=== PATIENT | male | born 1950 | race Caucasian/White ===

== ENCOUNTER → 2022-01-18 07:29 | Outpatient (CLI) | payer MEDICARE, SELFPAY ==
--- NOTE | ~2022-01-18 | US_ITS ---
EXAMINATION: US right upper quadrant DATE: 01/18/2022 08:13 INDICATION: Right upper quadrant abdominal pain TECHNIQUE: Multiple grayscale and Doppler ultrasound images of the abdomen were obtained. COMPARISON: None FINDINGS: Visualized proximal inferior vena cava and aorta are normal. The pancreas is not clearly visualized, obscured by shadowing gas in the stomach and bowels. Liver has normal contour, with a smooth surface. There is increased parenchymal echogenicity and coarsened echotexture consistent with diffuse hepati c steatosis. No liver lesion identified. No intrahepatic biliary duct dilation suspected. Portal mani ous flow was seen in the hepatopetal, normal direction and has normal Doppler waveform. There is shad owing the region of the gallbladder fossa. On some of the images as appears to represent dirty shadow ing is seen with gas. Where not obscured the gallbladder appears normal with no dilation or wall thic kening. Sonographic Zabala sign was reported as negative by the television director.The common bile duct albino ures 5 mm in diameter which is normal. The right kidney measures 10.8 cm in length with normal contou r and echogenicity and no hydronephrosis. IMPRESSION: 1. Shadowing at the gallbladder fossa. From the provided images it is unclear whether this represents gallstones, mural calcification or potentially gas within an adjacent loop of bowel. There is howeve r no bowel wall thickening or sonographic Zabala's sign to suggest acute cholecystitis. If this would affect clinical management would consider CT for further evaluation. 2. Diffuse hepatic steatosis. Reviewed, dictated and finalized at location A. IMPRESSION: 1. Shadowing at the gallbladder fossa. From the provided images it is unclear w hether this represents gallstones, mural calcification or potentially gas withi n an adjacent loop of bowel. There is however no bowel wall thickening or sonog raphic Zabala's sign to suggest acute cholecystitis. If this would affect clini edson management would consider CT for further evaluation. 2. Diffuse hepatic steatosis.
== END ==
PROVIDERS: PCP Internal Medicine; Visit Provider Internal Medicine
DX: R10.11 Right upper quadrant pain (principal); K76.0 Fatty (change of) liver, not elsewhere classified
CPT/HCPCS: 76705

== ENCOUNTER → 2022-07-24 11:22 | Outpatient (CLI) | payer MEDICARE, SELFPAY ==
--- NOTE | ~2022-07-24 | MR_ITS ---
EXAMINATION: MR knee RT wo con DATE: 07/24/2022 12:00 INDICATION: Twisting injury in April. Worsening generalized knee pain, weakness, sensation of giving out. TECHNIQUE: Magnetic resonance imaging (MRI) of the right knee was performed without intravenous contr ast. Sequences included axial PD-weighted FS FSE, coronal PD-weighted FSE and PD-weighted FS FSE, sag ittal PD-weighted FSE, and sagittal T2-weighted FS FSE. COMPARISON: None. FINDINGS: Medial compartment: Oblique undersurface tear of the posterior horn, medial meniscus. Small apical tear at the medial men iscal body. Moderate diffuse cartilage thinning with partial thickness fraying over the weightbearing surface of the medial femoral condyle. Mild osteophytosis. Lateral compartment: Apical tear of the body of the lateral meniscus. Mild diffuse cartilage thinning. 4 mm partial-thickn ess cartilage defect overlying the area of depressed cortex and subcortical cyst formation. Moderate osteophytosis. Patellofemoral compartment: Full-thickness cartilage loss over the medial facet and a portion of the median ridge with subcortica l cyst formation. Retinacula intact. Ligaments and tendons: ACL, PCL, MCL, and LCL are intact. Remaining flexor and extensor tendons are intact. Fluid: Small volume joint fluid. Osseous/other: No suspicious focal or diffuse marrow signal. IMPRESSION: 1. Oblique undersurface posterior horn tear and apical body tear of the medial meniscus. 2. Apical tear of the body of the lateral meniscus. 3. Presumably old, partially healed osteochondral lesion at the lateral femoral condyle. 4. Moderate tricompartmental osteoarthritic changes. Reviewed, dictated and finalized at location K. [employer]SEM[employer]
== END ==
PROVIDERS: PCP Internal Medicine
DX: M25.561 Pain in right knee (principal); S83.241A Other tear of medial meniscus, current injury, right knee, initial encounter; S83.281A Other tear of lateral meniscus, current injury, right knee, initial encounter; M89.9 Disorder of bone, unspecified; M17.11 Unilateral primary osteoarthritis, right knee
CPT/HCPCS: 73721

== ENCOUNTER 2023-02-05 01:41 | Day surgery (SDC) | payer MEDICARE, SELFPAY ==
[2023-02-02 12:55] VITALS: BMI 36.3
--- NOTE | 2023-02-05 07:00 | ECG_ITS ---
Measurements Intervals [place] Rate: 50 P: 15 NJ: 226 QRS: 25 QRSD: 94 T: 55 QT: 398 QTc: 364 Interpretive Statements SINUS BRADYCARDIA WITH FIRST DEGREE AV BLOCK ABNORMAL ECG NO PREVIOUS ECG AVAILABLE FOR COMPARISON Electronically Signed On 02-05-2023 10:25:07 CDT by Zohaib Amos M.D.
--- NOTE | 2023-02-05 08:50 | SUR.PHASEII ---
Pt in SB with 1 degree. GERALD/CV cancelled. Discharge instructions on follow up stress test and appointment went over with pt and spouse.
== END 2023-02-05 08:50 | disposition home or self-care (01) ==
PROVIDERS: PCP Internal Medicine; Visit Provider Internal Medicine Cardiovascular Disease
PROC: (CPT 93312; principal; 2023-02-05 08:30)
PROC: 5A2204Z Restoration of Cardiac Rhythm, Single (ICD-10-PCS; 2023-02-05 08:30)
DX: I48.91 Unspecified atrial fibrillation (principal); Z53.8 Procedure and treatment not carried out for other reasons
CPT/HCPCS: 99211; G0463; J7030

== ENCOUNTER 2025-07-03 00:10 | Day surgery (SDC) | payer MEDICARE, SELFPAY ==
--- OUTSIDE RECORDS SUMMARY | 2014-12-18 08:51 | XMS_ITS | Continuity of Care Document ---
Author Organization [facility] Address [address] [place] [address] [address] [place] [address] Phone Care Team Providers Care Director Process Improvement Name Role Phone Melvi PT, MS, Anup Unavailable Unavailable Procedures Procedure Date THERAPEUTIC EXERCISES NEUROMUSCULAR RE-ED MANUAL THERAPY THERAPEUTIC EXERCISES NEUROMUSCULAR RE-ED MANUAL THERAPY PT RE-EVALUATION THERAPEUTIC EXERCISES NEUROMUSCULAR RE-ED MANUAL THERAPY THERAPEUTIC EXERCISES NEUROMUSCULAR RE-ED MANUAL THERAPY THERAPEUTIC EXERCISES NEUROMUSCULAR RE-ED MANUAL THERAPY THERAPEUTIC EXERCISES NEUROMUSCULAR RE-ED MANUAL THERAPY HOT/COLD PACK ELECTRIC STIMULATION UNA THERAPEUTIC EXERCISES NEUROMUSCULAR RE-ED MANUAL THERAPY HOT/COLD PACK ELECTRIC STIMULATION UNATT THERAPEUTIC EXERCISES NEUROMUSCULAR RE-ED MANUAL THERAPY HOT/COLD PACK ELECTRIC STIMULATION UNATT THERAPEUTIC EXERCISES NEUROMUSCULAR RE-ED MANUAL THERAPY HOT/COLD PACK ELECTRIC STIMULATION UNATT THERAPEUTIC EXERCISES NEUROMUSCULAR RE-ED MANUAL THERAPY HOT/COLD PACK ELECTRIC STIMULATION UNATT PT RE-EVALUATION THERAPEUTIC EXERCISES MANUAL THERAPY HOT/COLD PACK ELECTRIC STIMULATION UNATT THERAPEUTIC EXERCISES MANUAL THERAPY HOT/COLD PACK ELECTRIC STIMULATION UNATT THERAPEUTIC EXERCISES MANUAL THERAPY HOT/COLD PACK ELECTRIC STIMULATION UNATT THERAPEUTIC EXERCISES MANUAL THERAPY HOT/COLD PACK ELECTRIC STIMULATION UNA PT RE-EVALUATION THERAPEUTIC EXERCISES MANUAL THERAPY HOT/COLD PACK ELECTRIC STIMULATION UNATT THERAPEUTIC EXERCISES MANUAL THERAPY HOT/COLD PACK ELECTRIC STIMULATION UNATT PT EVALUATION THERAPEUTIC EXERCISES MANUAL THERAPY HOT/COLD PACK ELECTRIC STIMULATION UNATT Advance Directives Directive Yes / No Effective Date File Name No Information Encounters Encounter Description Practice Location Reason(s) For Visit Diagnoses Date Provider Providers Copied on Encounter [facility], [place], [place], [id number], [phone] [place] No Information 7-201 5 Melvi Anup. [address] [address], . tel: [phone] [facility] [address] [facility] [address], [place], [place], [address], [phone] [place] No Information 0-201 5 Bryson Blakely. [address] [place] [address], [place] [address], . tel: [phone] Referring Provider: Ld Sorto, [address], [place], [address]. tel:[phone] [address], [place], [place], [address], [place] tel:[phone] [place] No Information Apr-0 8-201 5 Mayra Jayson. [address] [place] [address], [address], [place], [address], [place]. tel: [phone] Referring Provider: Ld Sorto, [address], [place], [address]. tel:[phone] [address], [place], [place], [address], [place] tel:[phone] [place] No Information Apr-0 1-201 5 Melvi Anup. [address] [place] [address], [address], [place], [address], [place]. tel: [phone] Referring Provider: Ld Sorto, [address], [place], [address]. tel:[phone] [address], [place], [address], [place] tel:[phone] [place] No Information Mar-3 0-201 5 Melvi Anup. [address] [place] [address], [address], [place], [address], [place]. tel: [phone] Referring Provider: Ld Sorto, [address], [place], [address]. tel:[phone] [address], [place], [place], [address], [place] tel:[phone] [place] No Information Mar-2 5-201 5 Melvi Anup. [address] [place] [address], [address], [place], [address], [place]. tel: [phone] Referring Provider: Ld Sorto [address], [place], [address]. tel:[phone] [facility] [address], [place], [place], [address], [place] tel:[phone] [place] No Information Mar-2 3-201 5 Mayra Tyler. [address] [place] [address], [address], [place], [place], [facility], [place]. tel: [phone] Referring Provider: Ld Sorto, [address], [place], [address]. tel:[phone] [facility] [address], [place], [place], [id number], [place] tel:[phone] [place] No Information Mar-1 8-201 5 Melvi Anup. [address] [place] [address], [address], [place], [address], [place]. tel: [phone] Referring Provider: Ld Sorto, [address], [place], [address]. tel:[phone] [facility] [address] [facility], [place], [place], [address], [place] tel:[phone] [place] No Information Mar-1 6-201 5 Melvi Anup. [address] [place] [address], [address], [place], [address], [place]. tel: [phone] Referring Provider: Jennifer [address], [place], [address]. tel:[phone] [facility] [address], [place], [place], [address], [place] tel:[phone] [place] No Information Mar-1 3-201 5 Melvi Anup. [address], [address], [place], [address], [place]. tel: [phone] Referring Provider: Ld Sorto, [address], [place], [address]. tel:[phone] [facility] [facility], [place], [place], [id number], [place] tel:[phone] [place] No Information 5 Melvi Anup. [address], [address], [place], [address], [place]. tel: [phone] Referring Provider: Nehal [address], [place], [address]. tel:[phone] [place] [address] [facility], [place], [place], [address], [place] tel:[phone] [place] No Information 5 Melvi Anup. [address], [address], [place], [address], [place]. tel: [phone] Referring Provider: Nehal Post [address], [place], [address]. tel:[phone] [address], [place], [place], [address], [place] tel:[phone] [place] No Information 5 Melvi Anup. [address], [address], [place], [address], [place]. tel: [phone] Referring Provider: Nehal [address], [place], [address]. tel:[phone] [facility] [address] [place], [place] [address], [place], [place], [address], [place] tel:[phone] [place] No Information 5 Melvi Anup. [address], [address], [place], [address], [place]. tel: [phone] Referring Provider: Nehal Post [address], [place], [address]. tel:[phone] [facility], [address], [place], [place], [address], [place] tel:[phone] [place] No Information 5 Melvi Anup. [address], [address], [place], [address], [place]. tel:[phone] Referring Provider: Jennifer [address], [place], [address]. tel:[phone], [id number], tel:[phone] [place] No Information 5 Melvi Hebert. [address], [address], [place], [address], [place]. tel:[phone] Referring Provider: eJnnifer [address], [place], [address]. tel:[phone], [id number], [phone] [place] No Information 5 Melvi [address]. [address] [place] [address], [address], [place], [address], [place]. tel:[phone] Referring Provider: Jennifer [address], [place], [address]. tel:[phone], [id number], [place] tel:[phone] [place] Complete rupture of rotator cuffPain in joint involving shoulder region 5 Melvi Hebert. [address], [address], [place], [address], [place]. tel:[phone] Referring Provider: Nehal [address], [place], [address]. tel:[phone] Family History Family Member Type Diagnosis Age At Onset No Information Payers Payer name Insurance type Covered libertarian ID Authoriza tion(s) [email or web address] [id number] Social History Type Description Quantity Date Captured Comments Sex Male Smoking Status No Information Chief Complaint And Reason For Visit No Information Reason For Referral Reason For Referral No Information History Of Present Illness Encounter Date Complaint History Of Prese nt Illness No Information Functional Status Date Functional Assessmen t No Information Instructions Date Instruction Additional Infor mation No Information Assessments Type Assessment Date No Information Patient Care Teams Name Effective Dates (start - stop) Status Members No Information
[2025-07-02 11:42] VITALS: BMI 35.3
[2025-07-03] VITALS (9 sets, daily range): BP systolic 96–131; BP diastolic 66–114; PULSE 55–111; RESP 12–20; TEMP 36.1; O2SAT 93–100
--- NOTE | 2025-07-03 | ECHO_ITS ---
Patient Info Name: Kedar Peng Age: 75 years : 1950 Gender: Male Ht: 72 in Wt: 260 lbs BSA: 2.49 m2 HR: 111 bpm BP: 111 / 78 mmHg Heart Rhythm: Atrial Fibrillation Technical Quality: Good Exam Date: 07/03/2025 10:06 AM Patient Status: unknown Admit Date: 07/03/2025 Exam Type: CA echo transesophageal Complete two-dimensional, color flow and Doppler transesophageal study is performed. Email Deployment Specialist: Gideon Talbot III Attending Provider: Julian Sanabria MD Summary 1. Limited transesophageal echocardiogram done prior to cardioversion. 2. Left atrium and left atrial appendage are dilated there is no evidence of thrombus. Left Ventricle Left ventricular chamber dimension is normal. Right Ventricle Right ventricular chamber dimension is normal. Left Atria Left atrial chamber dimension is severely enlarged. There is no thrombus visualized in the left atrium. Right Atria Right atrial chamber dimension is normal. Atrial Appendage There is no thrombus visualized in the left atrial appendage. Aortic Valve The aortic valve is normal. Pulmonic Valve The pulmonic valve is not well visualized. Mitral Valve The mitral valve has normal leaflets. Tricuspid Valve The tricuspid valve leaflets are normal. Pericardium/Pleural The pericardium appears normal. Aorta The aortic root size at the sinus of Valsalva is not well visualized. Report Signatures
--- OUTSIDE RECORDS SUMMARY | 2025-07-03 00:13 | XMS_ITS | Clinical Summary ---
Author Organization [facility] Address [address] [place] [address] Care Team Providers Care Academic Coach Name Role Phone Ramirez Whitfield MD Primary Care Provider [phone] Source Comments [facility] [employer],non-owned Affiliates and Associated Physician Practices is amultiple site organization consisting of ambulatory clinics and hospital sitesin [place], [place], [place] and [place]. This disclosure is being madepursuant to the Care Everywhere program and may not contain all information available regarding this patient. Last updated 18.[facility] [employer] Allergies No known active allergies Medications * Be aware that medications may not be up to date on this document. Alwaysverify current medications with the patient. aspirin (ASPIRIN) 81 MG tablet Take 1 Tab by mouth once daily 01/03/20 17 Active buPROPion XL 24hr (WELLBUTRIN-XL) 150 MG tablet Take 1 tablet by mouth once daily 09/17/19 19 Active losartan - hydroCHLOROthiazide (HYZAAR) 50-12.5 MG tablet Take 1 tablet by mouth once daily 90 tablet 1 04/25/20 19 Active atorvastatin (LIPITOR) 20 MG tablet TAKE 1 TABLET BY MOUTH ONCE DAILY AT BEDTIME 90 tablet 2 09/10/19 20 Active losartan (COZAAR) 50 MG tablet Take 1 tablet by mouth once daily Pt will need to make an appointment for further refills. 90 tablet 01/19/20 20 Active hydroCHLOROthiazide (MICROZIDE) 12.5 MG capsule Take 1 capsule by mouth once daily Pt will need to make an appointment for further refills. 90 capsule 01/19/20 20 Active Active Problems Problem Noted Date Diagnosed Date Elevated cholesterol 01/02/2017 Fam hx-ischem heart disease 01/02/2017 HTN (hypertension), benign Resolved Problems Problem Noted Date Diagnosed Date Resolved Date Chest pain 01/02/2017 10/09/2018 Family History Medical History Relation Name Comments Heart Disease Brother chf Heart Disease Father valve replacem ent Heart Disease Mother chf Heart Disease Sister chf Relation Name Status Comments Brother (Age 61) Father (Age 72) heart dise ase Mother (Age 80) chf Sister (Age 60) chf Social History Tobacco Use Types Packs/Day Years Used Date Smoking Tobacco: Never Smokeless Tobacco: Never Alcohol Use Standard Drinks/Week Comments No 0 (1 standard drink = 0.6 oz pur e alcohol) Sex and Gender Information Value Date Recorded Sex Assigned at Not on file Legal Sex Male 5:39 AM TALENT AGENT Gender Identity Not on file Sexual Orientation Not on file Last Filed Vital Signs Vital Sign Reading Time Taken Comments Blood Pressure 154/72 10/09/2018 1:05 PM TALENT AGENT Pulse 64 10/09/2018 1:05 PM TALENT AGENT Temperature - - Respiratory Rate - - Oxygen Saturation 94% 12/12/2017 1:27 PM CDT Inhaled Oxygen Concentration - - Weight 118.4 kg (261 lb) 10/09/2018 1:05 PM TALENT AGENT Height 188 cm (6' 2) 10/09/2018 1:05 PM TALENT AGENT Body Mass Index 33.51 10/09/2018 1:05 PM TALENT AGENT Plan of Treatment Health Maintenance Due Date Last Done Comments COLOGUARD (AGES 45-75) - COL ON CA SCREENING 1950 COLON MONITORING 1950 COLONOSCOPY - COLON CA SCREENING 1950 CT COLONOGRAPHY - COLON CA SCREENING 1950 Colorectal Cancer Screening 1950 FIT - COLON CA SCREENING 1950 FLEX SIG - COLON CA SCREENING 1950 HEPATITIS C SCREENING 04/23/1970 DTAP/TDAP/TD VACCINES (1 - Tdap) 1971 PNEUMOCOCCAL VACCINE 50+ (1 of 1 - PCV) 2002 ZOSTER VACCINE (1 of 2) 2002 SCREENING FOR DIABETES 06/06/2017 DEPRESSION SCREENING 09/03/2024 COVID-19 VACCINE (1 - 2023-2 5 season) 2025 INFLUENZA VACCINE (#1) 2025 Respiratory Syncytial Virus (RSV) Vaccine Pt: or over 60 yrs (1 - 1-dose 75+ series) 2027 HEPATITIS B VACCINE Aged Out No longe r eligible based on patient's age to complete this topic HIB VACCINE Aged Out No longer eligi ble based on patient's age to complete this topic HPV VACCINE Aged Out No longer eligi ble based on patient's age to complete this topic MENINGOCOCCAL (Group B) VACC INE SHARED DECISION-MAKING Aged Out No longer eligibl e based on patient's age to complete this topic MENINGOCOCCAL GROUPS A/C/Y/W VACCINE Aged Out No longer eligible b ased on patient's age to complete this topic Insurance MEDICARE C[employer]ER [employer] MEDICARE MEDICARE Care Teams Academic Coach Relationship Specialty Start Date End Date Ramirez Whitfield MD PCP - General Internal Medicine 01/01/17
--- OUTSIDE RECORDS SUMMARY | 2025-07-03 00:13 | XMS_ITS | Clinical Summary ---
Author Organization [facility] Address [address] [place] [address] Phone Care Team Providers Care Document Control Associate Name Role Phone Ramirez Whitfield MD Primary Care Provider [phone] Allergies No known active allergies Medications ergocalciferol (VITAMIN D) 76495 UNIT Capsule Take 50,000 Units by mouth once a week. Active DULoxetine (CYMBALTA) [address] Particles Take 60 mg by mouth daily. Active atorvastatin (LIPITOR) 20 MG Tablet Take 20 mg by mouth daily. Active lisinopril (PRINIVIL, ZESTRIL) 10 MG Tablet Take 10 mg by mouth daily. Active aspirin EC (ECOTRIN) 325 MG Tablet Delayed Response Take 325 mg by mouth daily. Active hydroCHLOROthiaz dominic (MICROZIDE) 12.5 MG Capsule Take 12.5 mg by mouth daily. 07/20/2017 Active Active Problems Problem Noted Date Diagnosed Date Calculus of gallbladder with acute cholecystitis without obstruction 07/24/2017 Hypertension 07/24/2017 Hyperglycemia 07/24/2017 Anxiety and depression 07/24/2017 STEFAN on CPAP 07/24/2017 Resolved Problems Problem Noted Date Diagnosed Date Resolved Date SIRS (systemic inflammatory response syndrome) 07/24/2017 08/02/2017 Immunizations Immunization Administration Dates Next Due Covid-19, Mrna, Lnp-s, Pf, 30 Mcg/0.3 Ml Dose (Laura fizer) 04/05/2021,03/11/2021 Family History Medical History Relation Name Comments Diabetes Brother No Known Problems Father No Known Problems Maternal Grandfather No Known Problems Maternal Grandmother Diabetes Mother Ovarian Cancer Mother No Known Problems Other No Known Problems Paternal Grandfather No Known Problems Paternal Grandmother Cancer Sister Diabetes Sister Relation Name Status Comments Brother Father Maternal Grandfather Maternal Grandmother Mother Other Paternal Grandfather Paternal Grandmother Sister Social History Tobacco Use Types Packs/Day Years Used Date Smoking Tobacco: Never Smokeless Tobacco: Never Tobacco Cessation:Counseling Given: No Alcohol Use Standard Drinks/Week Comments No 0 (1 standard drink = 0.6 oz pur e alcohol) Sex and Gender Information Value Date Recorded Sex Assigned at Not on file Legal Sex Male 7:09 PM CDT Gender Identity Not on file Sexual Orientation Not on file Last Filed Vital Signs Vital Sign Reading Time Taken Comments Blood Pressure 118/70 08/02/2017 10:42 AM ELECTRICAL TESTER Pulse 80 08/02/2017 10:42 AM ELECTRICAL TESTER Temperature 36.3 C (97.4 F) 08/02/2017 10:42 AM ELECTRICAL TESTER Respiratory Rate 20 08/02/2017 10:42 AM ELECTRICAL TESTER Oxygen Saturation 97% 08/02/2017 10:42 AM ELECTRICAL TESTER Inhaled Oxygen Concentration - - Weight 115.7 kg (255 lb) 08/02/2017 10:42 AM ELECTRICAL TESTER Height 188 cm (6' 2) 08/02/2017 10:42 AM ELECTRICAL TESTER Body Mass Index 32.74 08/02/2017 10:42 AM ELECTRICAL TESTER Plan of Treatment Health Maintenance Due Date Last Done Comments Hepatitis C Virus (HCV) Screening 1950 Cologuard 1997 Colonoscopy 1997 Colorectal Cancer Screening 1997 Immunochemical Fecal Occult Blood 1997 Pneumococcal Immunization (5 0+ years) (1 of 1 - PCV) 2002 Zoster Immunization (1 of 2) 2002 Respiratory Syncytial Virus (RSV) Immunization (Adult) (1 - Risk 60-74 years 1-dose series) 2012 Influenza Immunization (#1) 2025 SARS-COV-2 Immunization (3 - season) 2025 04/05/2021, 03/11/2021 DTaP/Tdap/Td Immunization Discontinued 12/03/2015 TdaP Immunization Completed 12/03/2015 Hepatitis B Immunization Aged Out No longer eligible based on patient's age to complete this topic Human Papillomavirus (HPV) Immunization Aged Out No longer eligible based on patient's age to complete this topic Meningococcal Immunization (ACWY) Aged Out No longer eligible based on patient's age to complete this topic Rotavirus Immunization Aged Out No lo nger eligible based on patient's age to complete this topic Insurance MEDICARE [facility] MEDICARE [facility] Advance Directives * Full Code (Latest Code Status on File) Date Activated Date Inactivated Comments 07/24/2017 11:15 AM 07/26/2017 4:31 PM CPR-Full Treatment: FULL ARREST: Attempt Resuscitation/CPR wit intubation and mechanical ventilation. PRE-ARREST: Use entire range of life support measures to stabilize the patient. Care Teams Document Control Associate Relationship Specialty Start Date End Date Ramirez Whitfield MD [address] [place] [address] PCP - General Family Medicine 07/23/17
--- OUTSIDE RECORDS SUMMARY | 2025-07-03 00:13 | XMS_ITS | Clinical Summary ---
Author Organization [facility] Address [address] [place] [address] Care Team Providers Care Bricklayer Apprentice Name Role Phone Ramirez Whitfield MD Primary Care Provider [phone] Allergies No known active allergies Medications DULoxetine DR (CYMBALTA) 60 mg capsule Active metFORMIN (GLUCOPHAGE) 500 mg tablet Take 1 tablet (500 mg total) by mouth 2 (two) times a day with meals 02/15/20 23 Active metoprolol tartrate (LOPRESSOR) 25 mg immediate release tabletIndication s:New onset atrial fibrillation (HCC) Take 1 tablet by mouth twice daily 180 tablet 2 11/25/19 25 Active losartan (COZAAR) 25 mg tablet Take 1 tablet (25 mg total) by mouth daily 10/30/19 25 Active hydroCHLOROthiaz dominic 12.5 mg tablet Take 1 tablet (12.5 mg total) by mouth edge sawyer before breakfast 10/30/19 25 Active atorvastatin (LIPITOR) 20 mg tablet Take 1 tablet by mouth once daily 90 tablet 3 01/01/20 25 Active rivaroxaban (Xarelto) 20 mg tabletIndication s:New onset atrial fibrillation (HCC) Take 1 tablet by mouth once daily with breakfast 30 tablet 4 06/29/20 25 Active amiodarone (PACERONE) 200 mg tabletIndication s:Cardioversion of Atrial Fibrillation Take 1 tablet (200 mg total) by mouth 2 (two) times a day 60 tablet 11 07/01/20 25 026 Active Xarelto 20 mg tabletIndication s:New onset atrial fibrillation (HCC) Take 1 tablet by mouth once daily with breakfast 30 tablet 05/25/20 025 Discontinued Active Problems Problem Noted Date Diagnosed Date Body mass index [BMI] 35.0-35.9, adult (Z68.35) 07/01/2025 PAF (paroxysmal atrial fibrillation) 01/16/2023 Morbid (severe) obesity due to excess calories 1 09/18/2021 Atypical chest pain 01/21/2021 LVH (left ventricular hypertrophy) 07/16/2020 Hyperlipidemia associated with type 2 diabetes m ellitus 07/16/2020 STEFAN (obstructive sleep apnea) 07/16/2020 Hypertension associated with diabetes 07/16/2020 Pain of foot 10/02/2017 Erectile dysfunction 09/17/2017 Anxiety and depression 07/24/2017 Calculus of gallbladder with acute cholecystitis without obstruction 07/24/2017 Hyperglycemia 07/24/2017 Obstructive sleep apnea syndrome 07/24/2017 Benign essential hypertension 07/17/2017 Fam hx-ischem heart disease 01/02/2017 Elevated cholesterol 01/02/2017 Memory loss 05/11/2016 Surgical follow-up care 08/03/2013 Arthralgia of hip 04/09/2013 Encounters Date Type Department Care Team Description 07/01/2025 1:15 PM CDT Office Visit [facility] Cardiology [address] [place] [address] Zohaib Amos MD PAF (paroxysmal atrial fibrillation) (Primary Dx); STEFAN (obstructive sleep apnea); Hyperlipidemia associated with type 2 diabetes mellitus (HCC); Hypertension associated with diabetes (HCC); Morbid (severe) obesity due to excess calories (E66.01); Body mass index [BMI] 35.0-35.9, adult (Z68.35); LVH (left ventricular hypertrophy) 07/01/2025 Telephone [facility] Medical [facility] Cardiology [address] [place] [address] Julian Sanabria MD cardioversion from Last 3 Months Surgical History Surgery Date Site/Laterality Comments JOINT REPLACEMENT VASECTOMY Medical History Medical History Date Comments Aftercare following joint re placement surgery Aftercare following joint re placement - (Added by TW Conv) Hypertension Hyperlipidemia Sleep apnea Family History Medical History Relation Name Comments Heart disease Brother Family history of cardiac disorder - (Added by TW Conv) Cancer Father Family history of malignant neoplasm - (Added by TW Conv) Hypertension Father Family history of hypertension - (Added by TW Conv) Lung disease Father Family history of lung disease - (Added by TW Conv) Cancer Mother Family history of malignant neoplasm - (Added by TW Conv) Heart disease Mother Family history of cardiac disorder - (Added by TW Conv) Heart disease Sister Family history of cardiac disorder - (Added by TW Conv) Relation Name Status Comments Brother Father Mother Sister Social History Tobacco Use Types Packs/Day Years Used Date Smoking Tobacco: Never Smokeless Tobacco: Never Tobacco Cessation:Counseling Given: Not Answered Alcohol Use Standard Drinks/Week Comments Never 0 (1 standard drink = 0.6 oz pur e alcohol) AUDIT-C Answer Date Recorded Q1: How often do you have a drink containing alc ohol? 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 Gender Identity Not on file Sexual Orientation Not on file Obstetrics History Last Filed Vital Signs Vital Sign Reading Time Taken Comments Blood Pressure 120/68 07/01/2025 1:22 PM CDT Pulse 142 07/01/2025 1:22 PM CDT Temperature - - Respiratory Rate 18 10/26/2023 10:01 AM MEDICAL EXAMINER Oxygen Saturation 96% 07/01/2025 1:22 PM CDT Inhaled Oxygen Concentration - - Weight 118.4 kg (261 lb) 07/01/2025 1:22 PM CDT Height 182.9 cm (6') 07/01/2025 1:22 PM CDT Body Mass Index 35.4 07/01/2025 1:22 PM CDT Plan of Treatment Health Maintenance Due Date Last Done Comments Albumin Creatinine Ratio, Urine 1952 Colon Cancer Screening-Colonoscopy 1952 Depression Screening 1952 Hemoglobin A1C 1952 Hepatitis C Screening 1952 Dilated Eye Exam 1952 Foot Exam 1952 Hepatitis B Screening 1970 Pneumococcal vaccine 65+ (1 of 2 - PCV) 1971 Zoster Vaccine (1 of 2) 2002 Well Visit 65+ 2017 Fall Risk Assessment 07/19/2023 07/19/2022, 07/26/2021, 01/21/2021, Additional history exists eGFR 01/17/2024 01/16/2023 Covid-19 Vaccine (3 - 2024-2 6 season) 2025 04/05/2021, 03/11/2021 Influenza Vaccine (#1) 2025 DTaP/Tdap/Td Vaccine (2 - Td or Tdap) 12/02/2025 12/03/2015 Lipid Panel 06/17/2026 06/17/2025, 12/03, 11/28/2024, Additional history exists Procedures Procedure Name Priority Date/Time Associated Diagnosis Comments ELECTROCARDIOGRAM REPORT Routine 025 2:42 PM CDT PAF (paroxysmal atrial fibrillation) POCT LIPID PANEL Routine 12/24/2024 2:01 PM CDT Hyperlipidemia associated with type 2 diabetes mellitus (HCC) EGFR Routine 01/16/2023 9:21 AM CDT New onset atrial fibrillation (HCC) from Last 3 Months or Most Recently Relevant to Health Maintenance Results * Electrocardiogram Report (07/01/2025 2:42 PM CDT) us Zohaib Amos MD ECG ORDERABLES Final Res ult * POCT lipid panel (12/24/2024 2:01 PM CDT) Cholesterol, POC 155 mg/dL HDL, POC 24 mg/dL Triglycerides, POC 243 mg/dL LDL Cholesterol POC 83 mg/dL Chol/HDL Ratio, POC 3.5 Non-HDL Cholesterol, POC 131 mg/dL Cholesterol Total, POC 155 mg/dL Capillary blood 12/24/2024 2 :01 PM CDT us Zohaib Amos MD POINT OF CARE TEST ORDERA BLES Final Result * eGFR (01/16/2023 9:21 AM CDT) eGFR 68 mL/min/1. 73 m2 YANNICK GALLOWAY Comment: Interpretive Data Reference Interval Normal >/= 90 mL/min/1.73m2 Mildly decreased* 60 - 89 mL/min/1.73m2 Mildly to moderately decreased 45 - 59 mL/min/1.73m2 Moderately to severely decreased 30 - 44 mL/min/1.73m2 Severely decreased 15 - 29 mL/min/1.73m2 Kidney Failure < 15 mL/min/1.73m2 *Relative to young adult level Estimated glomerular filtration rate is determined by the 2020 CKD-EPI equation recommended by the National Kidney Foundation (A Unifying Approach to GFR Estimation: Recommendations of the NKF-ASK Task Force on Reassessing the Inclusion of Race in Diagnosing Kidney Disease, JASN 2020). The CKD-EPI equation should not be used for patients with unstable renal function and has not been validated in children and those over 70. Current interpretive data was last reviewed 2021. Blood 01/16/2023 9:21 AM CDT 01/16/2023 2:46 PM CDT Zohaib Amos MD LAB BLOOD ORDERABLES Julieta pate Result YANNICK [address] [address] Department [place] [address] from Last 3 Months or Most Recently Relevant to Health Maintenance Insurance MEDICARE [facility] MEDICARE SUPPLEMENT INSURANCE MEDICARE [facility] MEDICARE SUPPLEMENT INSURANCE [facility] MEDICARE ADVANTAGE Care Teams Bricklayer Apprentice Relationship Specialty Start Date End Date Ramirez Whitfield MD PCP - General 07/09/17
--- OUTSIDE RECORDS SUMMARY | 2025-07-03 00:13 | XMS_ITS | Encounter Summary ---
Author Organization [facility] Address [address] [place] [address] Care Team Providers Care Car Wrecker Name Role Phone Ramirez Whitfield MD Primary Care Provider [phone] Reason for Referral * Procedure (Routine) - Authorized Specialty Diagnoses / Procedures Referred By Contac t Referred To Contact Cardiology Diagnoses PAF (paroxysmal atrial fibrillation) Julian Sanabria MD [address] [address] Phone: tel: fax: [facility] Cardiology [address] [address] Phone: tel: fax: Referral ID Status Reason Start Date Expiration Date Visits Requested Visits Authorized [id number] Authorized Specialty Services Required 07/31/2026 1 1 Question Answer Please select the performing region: [facility] [[id number]] Please select the performing department: [facility] CARD CH MRYVL [[id number]] # of visits: 1 Comments PROCEDURE/TEST ORDERED:Cardioversion LOCATION: DATE OF SERVICE: 07/03 INSURANCE:[facility] Medicare DIAGNOSIS:Uncontrolled A-Fib ORDERING PROVIDER:Elly ADDITIONAL DETAILS: Reason for Visit * Reason Onset Date Comments cardioversion 07/01/2025 Encounter Details Date Type Department Care Team (Late st Contact Info) Description 07/01/[address] 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 I [facility] Kent [facility] to check availability for tomorrow and neither Alex or I have heard back from anesthesia as of 1450. I spoke to pt who states that he is still in A-Fib with HR anywhere from 123-140's. Options are to proceed without anesthesia, direct admit to IMU (per CCL this was suggested by their director) or patient can be seen in ER for admission. Recommendation? * Telephone Encounter - Brenda Mehta RN - 07/02/2025 1:34 PM CDT Called and spoke to pt , Pt started the Amiodarone last night, she said his HR came down to 80's at one point. She is going to call him and have him check a HR, if he is under 100 he is going to come here for EKG to see if he converted * Telephone Encounter - Brenda Mehta RN - 07/02/2025 12:[address] Amos, he would be comfortable doing procedure without anesthesia, but it's not unreasonable to see if anesthesia is available. Message to Dr Kent at and Alex in [facility] to see if we can coordinate and anesthesia time for tomorrow. * Telephone Encounter - Brenda Mehta RN - 07/02/2025 9:57 AM CDT Forwarded to [facility] as FYI: Pt's is not 100% certain that pt didn't miss some doses of Xarelto in the last 4 weeks. Isable with Scheduling at aware to add GERALD to schedule, new form faxed to [facility] with CV/GERALD, pt and informed to proceed with pre-op instructions as directed and that GERALD has been added to the CV. * Telephone Encounter - Mora Hayes - 07/02/2025 8:22 AM CDT Ángela (pts spouse) states that there was a week were she forgot to set out the pts meds and the patient missed about a week of Xarelto. She is unsure of the exact time frame but states that it couldhave been this month. Ángela would like to know if they should postpone the Cardioversion. She alsostated that the pt fell at work a couple times and has a lump on his arm (not sure which arm) and didn't know if that is something [facility] and [facility] should know. Please advise. Thank you. Contact [phone] * Telephone Encounter - Brenda Mehta RN - 07/01/2025 2:09 PM CDT ONEIDA CHAVARRIA: Pt scheduled 07/03 @ 1000 for Cardioversion at , [facility] pt, Pt confirms that he has not missed any Xarelto doses in the last 4 weeks. Will hold Metformin and HCTZ am of procedure, documented in this encounter Plan of Treatment Scheduled Referrals Name Type Priority Associated Diagnoses Order Schedule Ambulatory referral to Cardiology Outpatient Referral Routine PAF (paroxysmal atrial fibrillation) Expected: 08/31/2025 (Approximate), Expires: 07/01/2026 documented as of this encounter Visit Diagnoses Diagnosis PAF (paroxysmal atrial fibrillation)- Primary Atrial fibrillation documented in this encounter Care Teams Car Wrecker Relationship Specialty Start Date End Date Ramirez Whitfield MD PCP - General 07/09/17 documented as of this encounter
--- OUTSIDE RECORDS SUMMARY | 2025-07-03 00:13 | XMS_ITS | Encounter Summary ---
Author Organization [facility] Address [address] [address] Care Team Providers Care Psychometrician Name Role Phone Ramirez Whitfield MD Primary Care Provider [phone] Encounter Details Date Type Department Care Team (Late st Contact Info) Description 04/06/2021 Lab Requisition [facility] Care DermPath Lab [address] 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 Gender Identity Not on file Sexual Orientation Not on file documented as of this encounter Plan of Treatment Not on file documented as of this encounter Procedures Procedure Name Priority Date/Time Associated Diagnosis Comments DERMATOPATHOLOGY Routine 04/05/2021 12:0 0 AM CDT documented in this encounter Results * DERMATOPATHOLOGY (04/05/2021 12:00 AM CDT) Case Report Dermatopathology Report Case: [id number] Authorizing Provider: Trenton Ta MD Collected: 04/05/2021 12:00 AM Ordering Location: [facility] DermPath Lab Received: 04/06/2021 10:37 AM Pathologist: Sonya Powell MD Specimens: A) - Skin, right sup med knee B) - Skin, right forehead 2:47 PM CDT DERMATOPATHOLOGY LABORATORY Final Diagnosis Specimen A. SKIN, right sup med knee: CUTANEOUS DERMATOPHYTOSIS (B35.9) (see microscopic description) Specimen B. SKIN, right forehead: EPIDERMOID CYST WITH CALCIFICATION (L72.0) (see microscopic description) 2:47 PM CDT DERMATOPATHOLOGY LABORATORY at 1447 CDT Clinical History A: R/O tinea, GA, BCC, SCC. B: R/O SQ mass. 2:47 PM CDT DERMATOPATHOLOGY LABORATORY Gross Description Specimen A: Received is one formalin filled container labeled with the patient's name and designated right sup med knee. The specimen consists of a shave biopsy measuring [id number] & [id number]. Jar 0. Specimen B: Received is one formalin filled container labeled with the patient's name and designated right forehead. The specimen consists of a [id number] excision, bisected. Jar 0. 2:47 PM CDT DERMATOPATHOLOGY LABORATORY Microscopic Description Specimen A. SKIN, right sup med knee: Epidermal spongiosis is noted with focal intracorneal neutrophils. There is a perivascular infiltrate of lymphocytes. A Grocott's methenamine silver (GMS) stain identifies fungal hyphae in the stratum corneum. Specimen B. SKIN, right forehead: Within the dermis, there is a space lined by epithelium that resembles normal epidermis and the infundibular portion of the hair follicle, with associated aggregates of homogenous amorphous basophilic material consistent with calcium within the cyst. 2:47 PM CDT DERMATOPATHOLOGY LABORATORY Disclaimer An external and internal positive and negative controls are appropriate for the histochemical, immunohistochemical and immunofluorescence stain(s) in this case (if any), except where stated explicitly. The performance characteristics of the stain(s) cited in this report were developed and its performance characteristic determined by the Dermatopathology Laboratory at [facility], directed by Dr. Inocencio Rider. These tests need not be, and therefore are not, approved by the [place] Food and Drug Administration. The tests are used for clinical purposes. Billing Codes Specimen Charges Stain Charges 64188 20612 1 1 40586 1 1 2:47 PM CDT DERMATOPATHOLOGY LABORATORY Embedded Images 1 2:47 PM CDT DERMATOPATHOLOGY LABORATORY Pathology/Cytology TISSUE SPECIMEN FROM SKIN / Unknown 04/05/2021 04/06/2021 10:37 AM CDT Miscellaneous samples (specimen) TISSUE SPECIMEN FROM SKIN / Unknown 04/05/2021 04/06/2021 10:37 AM CDT Trenton Ta MD LAB - PATHOLOGY/CYTOLOGY ORD ERABLES Final Result DERMATOPATHOLOGY LABORATORY [facility] - Department of Dermatology [facility] [address] [place] [address], [address] [phone] documented in this encounter Visit Diagnoses Not on filedocumented in this encounter Care Teams Psychometrician Relationship Specialty Start Date End Date Ramirez Whitfield MD PCP - General Internal Medicine 01/01/17 documented as of this encounter
--- OUTSIDE RECORDS SUMMARY | 2025-07-03 00:13 | XMS_ITS | Patient Health Record ---
Author Organization [facility] [email or web address] Address [address] [facility] [address] [place] [address] Care Team Providers Care Asbestos Shingle Inspector Name Role Phone Skip Ly Unavailable [phone] Reason For Referral No Information Medications Medication SIG (Take, Route, Frequency, Duration) Notes Start Date End Date Status metFORMIN HCl 500 MG Tablet Oral Active DULoxetine HCl 60 MG Capsule Delayed Release Particles Oral Active Atorvastatin Calcium 20 MG Tablet Oral Active Meloxicam 15 MG Tablet Oral Active Losartan Potassium-HCTZ 50-12.5 MG Tablet Oral Active Xarelto 20 MG Tablet Oral Active Metoprolol Tartrate 25 MG Tablet Oral Active Plan Of Treatment No Information
--- OUTSIDE RECORDS SUMMARY | 2025-07-03 00:13 | XMS_ITS | Encounter Summary ---
Author Organization [facility] Address [address] [place] [address] Care Team Providers Care Director Of Planning Name Role Phone Ramirez Whitfield MD Primary Care Provider [phone] Encounter Details Date Type Department Care Team (Late st Contact Info) Description 06/26/2025 Results Follow-Up [facility] Family & Internal Medicine [facility] [address] [place] [phone] Ramirez Whitfield MD [address] [place] [address] [phone] PROSTATE SPECIFIC ANTIGEN,SCREENING, CBC W/DIFF AUTOMATED, LIPID PANEL, Additional followed-up results: 7 Social History Tobacco Use Types Packs/Day Years Used Date Smoking Tobacco: Never Smokeless Tobacco: Never Comments:na Alcohol Use Standard Drinks/Week Comments No 0 (1 standard drink = 0.6 oz pur e alcohol) AUDIT-C Answer Date Recorded Frequency of Alcohol Consumption Never 09/16/2018 Average Number of Drinks Not on file 019 Frequency of Binge Drinking Not on file 09/03 PHQ-2 Answer Date Recorded Patient Health Questionnaire-2 Score 0 10/07/2024 Sex and Gender Information Value Date Recorded Sex Assigned at Male 09/16/2018 11:31 AM SPARE HAND Legal Sex Male 8:31 PM CDT Gender Identity Male 09/16/2018 11:31 AM SPARE HAND Sexual Orientation Straight 09/16/2018 11 :31 AM SPARE HAND documented as of this encounter Progress Notes * Ramirez Whitfield MD - 06/26/2025 10:31 AM CDT Creatinine is elevated, recommend recheck BMP nonfasting and well hydrated. Other labs are good andwe can discuss at appointment next month. documented in this encounter Plan of Treatment Upcoming Encounters Date Type Department Care Team (Late st Contact Info) Description 07/27/2025 2:40 PM SPARE HAND Office Visit [facility] Family & Internal Medicine - [place] [address] [place] [address] Ramirez Whitfield MD [address] [place] [address] Scheduled Orders Name Type Priority Associated Diagnoses Orde r Schedule BASIC METABOLIC PANEL Lab Routine Elevated serum creatinine Expected: 07/03/2025, Expires: 07/03/2026 documented as of this encounter Visit Diagnoses Diagnosis Elevated serum creatinine- Primary Other nonspecific findings on examination of blood documented in this encounter Additional Health Concerns Assessment Noted Time PHQ-9 Depression Total Score: 5 03/01/20 21 9:21 AM CDT documented as of this encounter Care Teams Director Of Planning Relationship Specialty Start Date End Date Ramirez Whitfield MD [address] [place] [id number] PCP - General INTERNAL MEDICINE 09/16/18 documented as of this encounter
--- OUTSIDE RECORDS SUMMARY | 2025-07-03 00:13 | XMS_ITS | Clinical Summary ---
Author Organization [facility] Address [facility] [place] [address] Care Team Providers Care Customer Records Division Supervisor Name Role Phone Ramirez Whitfield MD Primary Care Provider [phone] Allergies No known active allergies Medications multivitamin tablet Active XARELTO 20 MG Tab tablet Take 1 tablet (20 mg total) by mouth daily with breakfast. Active metoprolol tartrate (LOPRESSOR) 25 MG tablet Take 1 tablet (25 mg total) by mouth 2 (two) times daily. Active Lancets MiscIndications: Type 2 diabetes mellitus without complication, without long-term current use of insulin ([facility]) 1 Device by Does not apply route daily. 100 each 2 3 Active atorvastatin (LIPITOR) 20 MG tabletIndication s:Hyperlipidemia Take 2 tablets (40 mg total) by mouth daily. 60 tablet 4 Active Additional Information Patient taking differently: 20 mgOral Daily, Reported on 01/20/2025 Glucose Blood (ONETOUCH VERIO) test stripIndications :Type 2 diabetes mellitus without complication, without long-term current use of insulin ([facility]) USE 1 STRIP TO CHECK GLUCOSE ONCE DAILY 100 strip 5 Active fish oil (OMEGA-3 FATTY ACID) 1000 MG Cap capsule Take 1 capsule (1,000 mg total) by mouth 2 (two) times daily. Active ondansetron (ZOFRAN) 4 MG tabletIndication s:Nausea Take 1 tablet (4 mg total) by mouth every 8 (eight) hours as needed for Nausea. 20 tablet 5 Active fluticasone propionate (FLONASE) 50 MCG/ACT nasal sprayIndications :Dysfunction of both eustachian tubes 2 sprays by Nasal route daily. 15.8 mL 1 5 Active DULoxetine (CYMBALTA) 60 MG capsuleIndicatio ns:Anxiety and depression Take 1 capsule by mouth once daily 90 capsule 1 5 Active Blood Glucose Monitoring Suppl (CONTOUR NEXT EZ) w/Device KitIndications:T ype 2 diabetes mellitus without complication, without long-term current use of insulin ([facility]/HCC) 1 Device by Does not apply route daily. 1 kit 5 Active Glucose Blood (CONTOUR NEXT TEST) test stripIndications :Type 2 diabetes mellitus without complication, without long-term current use of insulin ([facility]) 1 strip by Other route daily. 100 strip 5 Active Microlet Lancets MiscIndications: Type 2 diabetes mellitus without complication, without long-term current use of insulin ([facility]) 1 Lancet by Does not apply route daily. 100 each 5 Active metFORMIN (GLUCOPHAGE) 500 MG tabletIndication s:Type 2 diabetes mellitus with other circulatory complication, without long-term current use of insulin ([facility]HS/HCC) TAKE 1 TABLET BY MOUTH TWICE DAILY WITH MEALS 180 tablet 1 5 Active hydroCHLOROthiaz dominic (MICROZIDE) 12.5 MG tabletIndication s:Benign essential hypertension TAKE 1 TABLET BY MOUTH ONCE DAILY IN THE MORNING 90 tablet 3 5 Active losartan (COZAAR) 25 MG tabletIndication s:Benign essential hypertension Take 1 tablet by mouth once daily 90 tablet 5 Active Active Problems Problem Noted Date Diagnosed Date Type 2 diabetes mellitus wit hout complication, without long-term current use of insulin 02/14/2023 Persistent atrial fibrillation 01/16/2023 Morbid (severe) obesity due to excess calories 1 09/25/2021 LVH (left ventricular hypertrophy) 07/16/2020 Erectile dysfunction 09/17/2017 Anxiety and depression 07/24/2017 Calculus of gallbladder with acute cholecystitis without obstruction 07/24/2017 Obstructive sleep apnea syndrome 07/24/2017 Benign essential hypertension 07/17/2017 Memory loss 05/11/2016 Hyperlipidemia 08/18/2014 Arthralgia of hip 04/09/2013 Resolved Problems Problem Noted Date Diagnosed Date Resolved Date Screening for colon cancer 11/21/2023 0 11/26/2023 Screening for colon cancer 11/21/2023 0 12/31/2023 Screening for colon cancer 11/21/2023 0 01/14/2024 Atypical chest pain 01/21/2021 03/10/20 STEFAN (obstructive sleep apnea) 07/16/2020 03/10/2021 Hyperlipidemia LDL goal <100 07/16/2020 03/10/2021 Essential hypertension 07/16/202003/10 Encounters Date Type Department Care Team Description 06/26/2025 Results Follow-Up [facility] Family & Internal Medicine [address] [phone] Ramirez Whitfield MD PROSTATE SPECIFIC ANTIGEN,SCREENING, CBC W/DIFF AUTOMATED, LIPID PANEL, Additional followed-up results: 7 from Last 3 Months Immunizations Immunization Administration Dates Next Due Influenza Adult (Generic) 07/18/2023(Def erred: Patient Refused - does not get vaccines) PFIZER COVID-19 (ORIGINAL FORMULATION, PURPLE CAP) mRNA, LNP-S, PF, 30 MCG/0.3 ML DOSE 04/05/2021,03/11/2021 Tdap (Generic) 12/03/2015 Family History Medical History Relation Comments Diabetes Brother Stroke Brother Hypertension Father Lung Cancer Father Vision loss Father Alzheimers Mother Arthritis Mother Breast Cancer Mother Cancer Mother Stroke Mother Uterine Cancer Mother Diabetes Sister Mental Health Sister Relation Status Comments Brother Father Mother Sister Social History Tobacco Use Types Packs/Day Years Used Date Smoking Tobacco: Never Smokeless Tobacco: Never Tobacco Cessation:Counseling Given: No Comments:na Alcohol Use Standard Drinks/Week Comments No [...] Sex Assigned at Male 09/16/2018 11:31 AM CAGE LOADER Legal Sex Male 8:31 PM CDT Gender Identity Male 09/16/2018 11:31 AM CAGE LOADER Sexual Orientation Straight 09/16/2018 11 :31 AM CAGE LOADER Last Filed Vital Signs Vital Sign Reading Time Taken Comments Blood Pressure 122/66 01/20/2025 2:45 PM CDT Pulse 67 01/20/2025 2:45 PM CDT Temperature 37 C (98.6 F) 01/20/2025 2:45 PM CDT Respiratory Rate 16 01/20/2025 2:45 PM CDT Oxygen Saturation 94% 01/20/2025 2:45 PM CDT Inhaled Oxygen Concentration - - Weight 116.5 kg (256 lb 12.8 oz) 01/20/2025 2:45 PM CDT Height 185.4 cm (6' 1) 01/20/2025 2:45 PM CDT Body Mass Index 33.88 01/20/2025 2:45 PM CDT Plan of Treatment Upcoming Encounters Date Type Department Care Team (Late st Contact Info) Description 07/27/2025 2:40 PM CAGE LOADER Office Visit [facility] Family & Internal Medicine [address] [phone] Ramirez Whitfield MD [address] [place] [phone] Health Maintenance Due Date Last Done Comments Pneumococcal Vaccine: 50+ Years (1 of 2 - PCV) 1971 Zoster Vaccines (1 of 2) 2002 Annual Medicare Wellness Visit 2017 COVID-19 Vaccine ( season) 2025 04/05/2021, 03/11/2021 Influenza Adult (#1) 2025 Diabetes: Retinopathy Eye Exam 06/21/2025 06/21/2023 DTaP, Tdap and Td Vaccines (2 - Td or Tdap) 12/02/2025 12/03/2015 Hemoglobin A1C 12/16/2025 06/17/2025, 11/02, 07/29/2024, Additional history exists Kidney Health Evaluation 06/17/2026 06/17/2025 Lipid Panel 06/17/2026 06/17/2025, 12/03, 11/28/2024, Additional history exists RSV Immunization or 60+ Years (1 - 1-dose 75+ series) 2027 Colorectal Cancer Screening Colonoscopy (10 Years) 01/10/2034 01/11/2024 Hepatitis C Completed 07/29/2024 PHQ-2 (Physician [place]) Completed 10/07/2024 Hepatitis A Vaccines Aged Out No long er eligible based on patient's age to complete this topic Meningococcal B Vaccine Aged Out No l onger eligible based on patient's age to complete this topic Meningococcal Vaccine Aged Out No richardson raine eligible based on patient's age to complete this topic RSV Immunizations Under 20 Months Aged Out No longer eligible based on patient's age to complete this topic Procedures Procedure Name Priority Date/Time Associated Diagnosis Comments URINALYSIS Routine 06/17/2025 9:24 AM CDT CK (CPK) Routine 06/17/2025 9:24 AM CDT Type 2 diabetes mellitus without complication, without long-term current use of insulin (CMS/HCC HHS/HCC) Mixed hyperlipidemia Benign essential hypertension Persistent atrial fibrillation (CMS/HCC HHS/HCC) ALBUMIN URINE RANDOM W/CREATININE Routine 06/17/2025 9:24 AM CDT Type 2 diabetes mellitus without complication, without long-term current use of insulin (CMS/HCC HHS/HCC) Mixed hyperlipidemia Benign essential hypertension Persistent atrial fibrillation (CMS/HCC HHS/HCC) HEMOGLOBIN, GLYCOSYLATED Routine 06/17/2025 9:24 AM CDT Type 2 diabetes mellitus without complication, without long-term current use of insulin (CMS/HCC HHS/HCC) Mixed hyperlipidemia Benign essential hypertension Persistent atrial fibrillation (CMS/HCC HHS/HCC) COMPREHENSIVE METABOLIC PANEL Routine 06/17/2025 9:24 AM CDT Type 2 diabetes mellitus without complication, without long-term current use of insulin (CMS/HCC HHS/HCC) Mixed hyperlipidemia Benign essential hypertension Persistent atrial fibrillation (CMS/HCC HHS/HCC) URIC ACID BLOOD Routine 06/17/2025 9:24 AM CDT Type 2 diabetes mellitus without complication, without long-term current use of insulin (CMS/HCC HHS/HCC) Mixed hyperlipidemia Benign essential hypertension Persistent atrial fibrillation (CMS/HCC HHS/HCC) TSH W/REFLEX Routine 06/17/2025 9:24 AM CDT Type 2 diabetes mellitus without complication, without long-term current use of insulin (CMS/HCC HHS/HCC) Mixed hyperlipidemia Benign essential hypertension Persistent atrial fibrillation (CMS/HCC HHS/HCC) LIPID PANEL Routine 06/17/2025 9:24 AM CDT Type 2 diabetes mellitus without complication, without long-term current use of insulin (CMS/HCC HHS/HCC) Mixed hyperlipidemia Benign essential hypertension Persistent atrial fibrillation (CMS/HCC HHS/HCC) CBC W/DIFF AUTOMATED Routine 06/17/2025 9:24 AM CDT Type 2 diabetes mellitus without complication, without long-term current use of insulin (CMS/HCC HHS/HCC) Mixed hyperlipidemia Benign essential hypertension Persistent atrial fibrillation (CMS/HCC HHS/HCC) PROSTATE SPECIFIC ANTIGEN,SCREENING Routine 06/17/2025 9:24 AM CDT Type 2 diabetes mellitus without complication, without long-term current use of insulin (CMS/HCC HHS/HCC) Mixed hyperlipidemia Benign essential hypertension Persistent atrial fibrillation (CMS/HCC HHS/HCC) HEPATITIS C ANTIBODY W/RFX TO HCV RNA Routine 07/29/2024 7:41 AM CAGE LOADER Need for hepatitis C screening test DIABETIC RETINOPATHY EXAM (NEGATIVE)(SCAN ORDER) Routine 06/21/2023 from Last 3 Months or Most Recently Relevant to Health Maintenance Results * TSH W/REFLEX (06/17/2025 9:24 AM CDT) TSH 2.46 0.40 - 4.50 mIU/L [facility] [place] 06/17/2025 9:24 AM CDT 06/17/2025 9:24 AM CDT Narrative Resulting Agency Comment Performing Organization Information: Site ID: [place] Name: [facility] Address: [address] [place] [address] Director: Megan-Lieu Thi Vo us Ramirez Whitfield MD LABORATORY Final Result Performing Organization Address [facility] Co de Phone Number [facility] [employer] [address], [place] * (ABNORMAL) HEMOGLOBIN, GLYCOSYLATED (06/17/2025 9:24 AM CDT) HGB A1C 6.9(H) <5.7 % of total Hgb [facility] [place] Comment: For someone without known diabetes, a hemoglobin A1c value of 6.5% or greater indicates that they may have diabetes and this should be confirmed with a follow-up test. For someone with known diabetes, a value <7% indicates that their diabetes is well controlled and a value greater than or equal to 7% indicates suboptimal control. A1c targets should be individualized based on duration of diabetes, age, comorbid conditions, and other considerations. Currently, no consensus exists regarding use of hemoglobin A1c for diagnosis of diabetes for children. 06/17/2025 9:24 AM CDT 06/17/2025 9:24 AM CDT Narrative Resulting Agency Comment Performing Organization Information: Site ID: Name: [facility] Address: [address] [place] [phone] Director: Camilla Boateng Vo Ramirez Whitfield MD LABORATORY Final Result Performing Organization Address [facility] Co de Phone Number [employer] [facility] [employer] [address], [place] * (ABNORMAL) URINALYSIS (06/17/2025 9:24 AM CDT) COLOR (U) YELLOW YELLOW [facility] [place] APPEARANCE SEMEN CLEAR CLEAR [facility] [place] SPECIFIC GRAVITY (U) 1.017 1.001 - 1.035 [facility] [place] PH (U) 6.5 5.0 - 8.0 [facility] [place] URINE GLUCOSE NEGATIVE NEGATIVE [facility] KETONE (U) NEGATIVE NEGATIVE [facility] [place] BLOOD (U) NEGATIVE NEGATIVE [facility] [place] PROTEIN (U) TRACE(A) NEGATIVE [facility] [place] 06/17/2025 9:24 AM CDT 06/17/2025 9:24 AM CDT Narrative Resulting Agency Comment Performing Organization Information: Site ID: [place] Name: Andrew Newman Address: [place] [address] Director: Camilla Benavidez MD Ramirez Whitfield MD URINE ORDERABLES Final Result Performing Organization Address City/[facility]/ZIP Co de Phone Number ANDREW GRANT [facility] [place] [address], [place] * PROSTATE SPECIFIC ANTIGEN,SCREENING (06/17/2025 9:24 AM CDT) PSA TOTAL 1.83 < OR = 2.50 ng/mL [employer] [facility] Comment: The total PSA value from this assay system is standardized against the WHO standard. The test result will be approximately 20% lower when compared to the equimolar-standardized total PSA (Fariha [place]). Comparison of serial PSA results should be interpreted with this fact in mind. This test was performed using the Siemens chemiluminescent method. Values obtained from different assay methods cannot be used interchangeably. PSA levels, regardless of value, should not be interpreted as absolute evidence of the presence or absence of disease. 06/17/2025 9:24 AM CDT 06/17/2025 9:24 AM CDT Narrative Resulting Agency Comment Performing Organization Information: Site ID: [place] Name: Andrew Newman Address: [place] [address] Director: Camilla Benavidez MD Ramirez Whitfield MD LABORATORY Final Result Performing Organization Address City/[facility]/ZIP Co de Phone Number ANDREW GRANT [facility] [address] [place] [address], [place] * (ABNORMAL) ALBUMIN URINE RANDOM W/CREATININE (06/17/2025 9:24 AM CDT) CREATININE RANDOM (U) 92 20 - 320 mg/dL [employer] [facility] MICROALBUMIN (U) 4.6 See Note: mg/dL [employer] [facility] Comment: Reference Range: Reference Range Not established MICROALB/CREAT 50(H) <30 mg/g creat [facility] Comment: The ADA defines abnormalities in albumin excretion as follows: Albuminuria Category Result (mg/g creatinine) Normal to Mildly increased <30 Moderately increased 30-299 Severely increased > OR = 300 The ADA recommends that at least two of three specimens collected within a 3-6 month period be abnormal before considering a patient to be within a diagnostic category. URINE SPECIMEN / Unknown 06/17/2025 9:24 AM CDT 06/17/2025 9:24 AM CDT Narrative Resulting Agency Comment Performing Organization Information: Site ID: [place] Name: [facility] Address: [address] [place] [address] Director: Camilla Benavidez MD us Ramirez Whitfield MD URINE ORDERABLES Final Result [employer] [facility] [address] [address] [facility] [place], [place] [address] * (ABNORMAL) COMPREHENSIVE METABOLIC PANEL (06/17/2025 9:24 AM CDT) GLUCOSE 144(H) 65 - 99 mg/dL [place] Comment: Fasting reference interval For someone without known diabetes, a glucose value >125 mg/dL indicates that they may have diabetes and this should be confirmed with a follow-up test. BUN 36(H) 7 - 25 mg/dL [place] CREATININE S/P/B 1.69(H) 0.70 - 1.28 mg/dL [place] GFR ESTIMATE 42(L) > OR = 60 mL/min/1.7 3m2 [place] BUN CREATININE RATIO 21 6 - 22 (calc) [place] SODIUM S/P/B 139 135 - 146 mmol/L [place] POTASSIUM S/P/B 4.8 3.5 - 5.3 mmol/L [place] CHLORIDE S/P/B 102 98 - 110 mmol/L [place] CO2 29 20 - 32 mmol/L [place] CALCIUM S/P/B 9.7 8.6 - 10.3 mg/dL [place] TOTAL PROTEIN S/P/B 7.5 6.1 - 8.1 g/dL [place] ALBUMIN S/P/B 4.5 3.6 - 5.1 g/dL [place] GLOBULIN 3.0 1.9 - 3.7 g/dL (calc) [place] ALBUMIN/GLOBULIN RATIO 1.5 1.0 - 2.5 (calc) [place] BILIRUBIN TOTAL S/P/B 0.9 0.2 - 1.2 mg/dL [place] ALKALINE PHOSPHATASE S/P/B 72 35 - 144 U/L [place] AST 18 10 - 35 U/L [place] ALT 26 9 - 46 U/L [place] 06/17/2025 9:24 AM CDT 06/17/2025 9:24 AM CDT Narrative Resulting Agency Comment Performing Organization Information: Site ID: [place] Name: [facility] Address: [address] [place] [phone] Director: Camilla Benavidez Ramirez Whitfield MD LABORATORY Final Result [facility] [address] [address], * (ABNORMAL) LIPID PANEL (06/17/2025 9:24 AM CDT) CHOLESTEROL 136 <200 mg/dL [place] HDL 30(L) > OR = 40 mg/dL [place] TRIGLYCERIDES 135 <150 mg/dL [place] LDL (CALCULATED) 83 mg/dL (calc) [place] Comment: Reference range: <100 Desirable range <100 mg/dL for primary prevention; <70 mg/dL for patients with CHD or diabetic patients with > or = 2 CHD risk factors. LDL-C is now calculated using the Betzy calculation, which is a validated novel method providing better accuracy than the Friedewald equation in the estimation of LDL-C. Roddy NOVAK et al. [place]ELLE. 2013;310(19): 0729-7916 (http://education.PetSitnStay/faq/MZA988) CHOL/HDL RATIO 4.5 <5.0 (calc) [place] NON HDL CHOLESTEROL 106 <130 mg/dL (calc) [place] Comment: For patients with diabetes plus 1 major ASCVD risk factor, treating to a non-HDL-C goal of <100 mg/dL (LDL-C of <70 mg/dL) is considered a therapeutic option. 06/17/2025 9:24 AM CDT 06/17/2025 9:24 AM CDT Narrative Resulting Agency Comment Performing Organization Information: Site ID: Name: [facility] Address: [address] [place] [phone] Director: Camilla Benavidez us Ramirez Whitfield MD LABORATORY Final Result [facility] [place] [address] [address], * CBC W/DIFF AUTOMATED (06/17/2025 9:24 AM CDT) WBC 5.6 3.8 - 10.8 Thousand/u L [place] RBC 4.79 4.20 - 5.80 Million/uL [place] HGB 14.6 13.2 - 17.1 g/dL [place] HCT 45.0 38.5 - 50.0 % [place] MCV 93.9 80.0 - 100.0 fL [place] MCH 30.5 27.0 - 33.0 pg [place] MCHC 32.4 32.0 - 36.0 g/dL [place] Comment: For adults, a slight decrease in the calculated MCHC value (in the range of 30 to 32 g/dL) is most likely not clinically significant; however, it should be interpreted with caution in correlation with other red cell parameters and the patient's clinical condition. RDW 13.2 11.0 - 15.0 % [facility] PLT 288 140 - 400 Thousand/u L [facility] MPV 9.4 7.5 - 12.5 fL [facility] ABS. NEUTROPHILS 3,769 1,500 - 7,800 cells/uL [facility] ABS. LYMPHOCYTES 1,114 850 - 3,900 cells/uL [facility] ABS. MONOCYTES 616 200 - 950 cells/uL [facility] ABS. EOSINOPHILS 50 15 - 500 cells/uL [facility] ABS. BASOPHILS 50 0 - 200 cells/uL [facility] SEG NEUTROPHILS 67.3 % [facility] [place] LYMPHOCYTES 19.9 % [facility] MONOCYTES 11.0 % [facility] EOSINOPHILS 0.9 % [facility] BASOPHILS 0.9 % [facility] 06/17/2025 9:24 AM CDT 06/17/2025 9:24 AM CDT Narrative Resulting Agency Comment Performing Organization Information: Site ID: [place] Name: [facility] Address: [address] [place] [address] Director: Camilla Benavidez Ramirez Whitfield MD LABORATORY Final Result [facility] [address], * CK (CPK) (06/17/2025 9:24 AM CDT) TOTAL CK 76 19 - 278 U/L [facility] 06/17/2025 9:24 AM CDT 06/17/2025 9:24 AM CDT Narrative Resulting Agency Comment Performing Organization Information: Site ID: Name: [facility] Address: [address] [place] [address] [place] [address] Director: Camilla Benavidez us Ramirez Whitfield MD LABORATORY Final Result Performing Organization Address [facility] de Phone Number [employer] [facility] [employer] [address], * (ABNORMAL) URIC ACID BLOOD (06/17/2025 9:24 AM CDT) URIC ACID 9.6(H) 4.0 - 8.0 mg/dL [facility] Comment: Therapeutic target for gout patients: <6.0 mg/dL 06/17/2025 9:24 AM CDT 06/17/2025 9:24 AM CDT Narrative Resulting Agency Comment Performing Organization Information: Site ID: [place] Name: [facility] Address: [address] [place] [address] [place] [address] Director: Camilla Benavidez us Ramirez Whitfield MD LABORATORY Final Result Performing Organization Address [facility] de Phone Number [employer] [facility] [employer] [address], [place] * HEPATITIS C ANTIBODY W/RFX TO HCV RNA (07/29/2024 7:41 AM CAGE LOADER) HEPATITIS C AB NON-REACT DC NON-REACT DC [facility] Comment: HCV antibody was non-reactive. There is no laboratory evidence of HCV infection. In most cases, no further action is required. However, if recent HCV exposure is suspected, a test for HCV RNA (test code 23373) is suggested. For additional information please refer to http://education.MedAware/faq/OLE08b0 (This link is being provided for informational/ educational purposes only.) 07/29/2024 7:41 AM CAGE LOADER 07/29/2024 7:45 AM CAGE LOADER Narrative Resulting Agency Comment Performing Organization Information: Site ID: [place] Name: [facility] Address: [address] [address] Director: Camilla Benavidez MD Ramirez Whitfield MD LABORATORY Final Result [facility] [place] [address] [place] [address], [place] * DIABETIC RETINOPATHY EXAM (NEGATIVE)(SCAN) (06/21/2023) [facility] Scanned SCANNING Final Resu lt [facility] ONBASE from Last 3 Months or Most Recently Relevant to Health Maintenance Insurance MEDICARE [facility] MEDICARE Care Teams Customer Records Division Supervisor Relationship Specialty Start Date End Date Ramirez Whitfield MD [address] [place] [phone] PCP - General INTERNAL MEDICINE 09/16/18
--- NOTE | 2025-07-03 08:30 | ECG_ITS ---
Test Date: 2025-07-03 10:55:33 Measurements Intervals [place] Rate: 53 P: 27 [place]: 240 QRS: 30 QRSD: 105 T: 26 QT: 407 QTc: 384 Interpretive Statements SINUS BRADYCARDIA WITH FIRST DEGREE AV BLOCK INCOMPLETE RIGHT BUNDLE BRANCH BLOCK BORDERLINE ECG Compared to ECG 07/03/2025 08:48:18 First degree AV block now present Atrial fibrillation no longer present Electronically Signed On 07-03-2025 11:24:30 CDT by Eugene Howe D.O.
--- NOTE | 2025-07-03 08:30 | ECG_ITS ---
Test Date: 2025-07-03 08:48:18 Measurements Intervals [place] Rate: 114 P: 0 KS: 0 QRS: 34 QRSD: 93 T: 43 QT: 312 QTc: 431 Interpretive Statements ATRIAL FIBRILLATION WITH RAPID VENTRICULAR RESPONSE BASELINE ARTIFACT- I, II, III, AVR, AVL, AVF, V1 ABNORMAL ECG No previous ECG available for comparison Electronically Signed On 07-03-2025 09:35:43 CDT by Eugene Howe D.O.
[2025-07-03 09:23] LABS: Anion Gap 9 mmol/L (4-12); Blood Urea Nitrogen 43 mg/dL (9-20); Calcium 9.2 mg/dL (8.4-10.2); Carbon Dioxide 27 mmol/L (22-30); Chloride 102 mmol/L (98-107); Estimated CRCL calculation 49 ml/min; Estimated Glomerular Filt Rate 43; Glucose 152 mg/dL (65-110); Magnesium 2.1 mg/dL (1.6-2.3); Potassium 4.8 mmol/L (3.4-5.0); Sodium 138 mmol/L (137-145)
--- NOTE | 2025-07-03 10:39 | WPDMODSED ---
Moderate Sedation Note-Pt Data Patient Data Diagnosis: Recurrent atrial fibrillation Present Complaint: Palpitation Procedure to be performed/Plan: Senthil/cardioversion Allergies Allergy/AdvReac Type Severity Reaction Status Date / Time No Known Allergies Allergy Verified 07/03/25 08:51 Home Medications ?Medication ?Instructions ?Recorded ?Confirmed ?Type atorvastatin 20 mg tablet 20 mg PO DAILY 02/02/23 07/02/25 History duloxetine 60 mg capsule,delayed 60 mg PO DAILY 02/02/23 07/02/25 History release metoprolol tartrate 25 mg tablet 25 mg PO BID 02/02/23 07/03/25 History rivaroxaban 20 mg tablet (Xarelto) 20 mg PO DAILY 02/02/23 07/02/25 History amiodarone 200 mg tablet 200 mg PO BID 07/02/25 07/03/25 History hydrochlorothiazide 12.5 mg tablet 12.5 mg PO DAILY 07/02/25 07/02/25 History losartan 25 mg tablet 25 mg PO DAILY 07/02/25 07/02/25 History metformin 500 mg tablet 500 mg PO BID 07/02/25 07/02/25 History Current Medications: Active Medications Sodium Chloride (Normal Saline Iv) 1,000 mls @ 30 mls/hr IV CONT .Q24H SHEA Sedation/Anesthesia: No previous sedation/anesthesia problems (including family history). [facility], [facility] Social History Social History (System 09/23/20 @ 13:19 by Víctor Clemente) Smoking status: Never smoker Second hand tobacco smoke exposure: No Alcohol intake: never Substance use: never Substance use type: does not use Living arrangements: with family Spiritual care concerns: No Mod Sed Physical Exam Physical Exam Pre Procedural Exam: Normal: Throat, Airway, Lungs, Heart Size, Heart Rate, Heart Rhythm and Extremities and Variation: Appearance (Overweight gentleman no apparent distress) Hours since solid foods: 12 Hours since liquid intake: 12 Mallampati Classification: class II Internal Medicine - PN: Obj Da Vital Signs Vital Signs: Vital Signs - 24 hr 07/03/25 08:52 Temperature 36.1 C L Pulse Rate 104 H Respiratory Rate 16 Blood Pressure 122/83 Pulse Oximetry 100 Oxygen Delivery Room Air Meds/Results Medications: Active Medications Generic Name Dose Route Start Last Admin Trade Name Freq PRN Reason Stop Dose Admin Sodium Chloride 1,000 mls @ 30 mls/hr 07/03/25 08:30 Normal Saline Iv IV CONT .Q24H SHEA Labs 07/03/25 08:57 Labs: Laboratory Results - last 24 hr 07/03/25 08:57 Sodium 138 Potassium 4.8 Chloride 102 Carbon Dioxide 27 Anion Gap 9 BUN 43 H Creatinine 1.60 H Estim Creat Clear Calc 49 Estimated GFR 43 L Glucose 152 H Calcium 9.2 Magnesium 2.1 ASA Classification/Sedation ASA Classification/Sedation ASA Class: II Emergent: No Risks: Risks, benefits and alternatives explained and patient/family accepted plan for sedation. Patient re-evaluated immediately prior to sedation.
--- NOTE | 2025-07-03 10:54 | WPDCARDPROC ---
Cardiac Cath Procedure Note Date of procedure:: 07/03/25 Performing physician:: Julian Sanabria MD Indication:: This is a 75-year-old man with paroxysmal atrial fibrillation. He has been treated with metoprolol and Xarelto. He was seen in the office 2 days ago with a symptomatic recurrence of his AF. He was started on amiodarone. There was some question as to the anticoagulation whether that might have been an interruption and so SENTHIL/cardioversion has been scheduled for this morning. Brief clinical history:: As above Procedure Procedure performed:: Senthil/cardioversion Sedation/Medication given:: IV propofol total dosage of 60 mg Estimated blood loss:: No blood loss Procedure note:: Patient was brought to the cardiac catheterization lab holding area in the postabsorptive state defibrillator patches were placed in the AP position the defibrillator was connected and turned on at 200 joules output in a synchronized fashion. The patient then had or pharyngeal Cetacaine spray and a bite block placed into position the SENTHIL probe was then placed into the hypopharynx and easily advanced into the esophagus. Multiplane SENTHIL imaging was performed of the left atrium in the appendage there was excellent visualization and no evidence of atrial thrombus. Color Doppler demonstrated mild central jet of MR. Following this the SENTHIL probe was withdrawn the patient was then counter shocked with 200 joules x1 shock that restored sinus rhythm with heart heart rate of 53. Procedure was well tolerated and uncomplicated Findings:: As above Conclusion:: Successful uncomplicated SENTHIL/cardioversion terminating atrial fibrillation restoring sinus rhythm using 200 joules x1 shock following confirmation of absence of left atrial appendage thrombus. Julian Sanabria MD [facility]
[2025-07-03] MEDS: PROPOFOL IV EMULSION 200 MG/20 ML VIAL 70 MG IV PUSH (11:09)
== END 2025-07-03 12:10 | disposition home or self-care (01) ==
PROVIDERS: PCP Internal Medicine; Visit Provider Specialist
PROC: 5A2204Z Restoration of Cardiac Rhythm, Single (ICD-10-PCS; principal; 2025-07-03 10:00)
PROC: (CPT 93312; 2025-07-03 10:00)
DX: I48.0 Paroxysmal atrial fibrillation (principal); Z79.01 Long term (current) use of anticoagulants
CPT/HCPCS: 36415; 80048; 83735; 92960; 93312; 93320; 93325; J2704; J7030

== ENCOUNTER 2025-08-19 09:17 | Outpatient (CLI) | payer MEDICARE, SELFPAY ==
--- NOTE | ~2025-08-19 | XR_ITS ---
EXAMINATION: XR abdomen/kub 1V DATE: 08/19/2025 09:42 INDICATION: Right renal stone TECHNIQUE: A supine view of the abdomen on 2 radiographs was obtained. COMPARISON: None. FINDINGS: Bilateral renal stones measuring 1.2 cm projecting over the right kidney and 6 mm projecting over the left kidney. Small curvilinear atherosclerotic calcifications in the left hemipelvis. Bowel gas pattern is unremarkable. Bilateral total hip arthroplasties as in associated heterotopic ossification in the surrounding soft tissues. Severe lumbar spondylosis. Lung bases are clear. Heart size is normal. IMPRESSION: 1. Bilateral nephrolithiasis. Reviewed, dictated and finalized at location A. [employer]
== END 2025-08-19 09:18 | disposition home or self-care (01) ==
PROVIDERS: PCP Nurse Practitioner; Visit Provider Nurse Practitioner
DX: N20.0 Calculus of kidney (principal)
CPT/HCPCS: 74018